=== PATIENT | female | born 1975 | race Caucasian/White ===

== ENCOUNTER 2019-07-12 20:46 | Emergency (ER) | payer MEDICAID ==
[~2019-07-12] VITALS: Ht 162.6 cm; Wt 65.8 kg
[2019-07-12 21:00] VITALS: BP 129/76
--- NOTE | 2019-07-12 21:03 | NUR ---
TO BED # 04 AMBULATORY
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
[2019-07-12] MEDS ORDERED: DIAZEPAM 5 MG TAB PO ONE (22:05)
[2019-07-12] MEDS ORDERED: KETOROLAC 30 MG/ML VIAL IM ONE (22:05)
--- NOTE | 2019-07-12 22:47 | NUR ---
PT TAKEN TO CT BY HOLE FILLER
[2019-07-13 00:08] VITALS: BP 129/76
--- NOTE | 2019-07-13 00:09 | NUR ---
Patient discharged with v/s stable. Written and verbal after care instructions given and explained. Patient alert, oriented and verbalized understanding of instructions. Ambulatory with steady gait. All questions addressed prior to discharge. ID band removed. Patient advised to follow up with PMD. Rx of VALIUN, NAPROSEN, IBUPROFEN given. Patient educated on indication of medication including possible reaction and side effects. Opportunity to ask questions provided and answered.
== END 2019-07-13 00:09 | disposition home or self-care (01) ==
LOC: MED 20:46
DX: S16.1XXA Strain of muscle, fascia and tendon at neck level, initial encounter (principal); R51 Headache; Z98.890 Other specified postprocedural states; Z85.3 Personal history of malignant neoplasm of breast; Z88.6 Allergy status to analgesic agent; Z88.5 Allergy status to narcotic agent; V43.63XA Car passenger injured in collision with pick-up truck in traffic accident, initial encounter; Y93.89 Activity, other specified; Y92.89 Other specified places as the place of occurrence of the external cause; Y99.8 Other external cause status
CPT/HCPCS: 70450; 72125; 81025; 93005; 96372; 99285; J1885